=== PATIENT | female | born 2000 | race Caucasian/White ===

== ENCOUNTER 2022-03-29 22:11 | Emergency (ER) | payer MEDICAID ==
[~2022-03-29] VITALS: Ht 157.5 cm; Wt 72.6 kg
[2022-03-29 22:38] VITALS: BP 104/73
--- NOTE | 2022-03-29 22:38 | NUR ---
Dr. Carr examining patient.
[2022-03-29 23:02] LABS: APPEARANCE,URINE CLOUDY (CLEAR); BILIRUBIN,URINE NEGATIVE (NEGATIVE); BLOOD, URINE 2+ (NEGATIVE); COLOR,URINE YELLOW (YELLOW); LEUKOCYTE ESTERASE ,URINE 1+ (NEGATIVE); NITRITE, URINE POSITIVE (NEGATIVE); UGLUCOSE NEGATIVE (NEGATIVE)
[2022-03-29 23:07] LABS: RBC,URINE 0-5 /HPF (0-5); WBC,URINE 20-60 /HPF (0-5)
[2022-03-29] MEDS ORDERED: NITR100C7 PO (23:14)
[2022-03-29 23:18] VITALS: BP 104/73
--- NOTE | 2022-03-29 23:18 | NUR ---
Patient discharged with v/s stable. Written and verbal after care instructions given and explained for UIT by Dr. Carr. Patient alert, oriented and verbalized understanding of instructions. Ambulatory with steady gait. All questions addressed prior to discharge. ID band removed. Patient advised to follow up with PMD. Rx of Macrobid given. Patient educated on indication of medication including possible reaction and side effects. Opportunity to ask questions provided and answered.
--- NOTE | 2022-04-03 11:38 | NUR ---
LATE ENTRY. RECEIVED POSITIVE URINE CULTURE. DISCREPANCY LOG SIGNED BY DR OROSCO, TREATMENT APPROPRIATE. FORM PLACED IN BINDER.
== END 2022-03-29 23:18 | disposition home or self-care (01) ==
LOC: MED 22:11
DX: N39.0 Urinary tract infection, site not specified (principal); Z90.49 Acquired absence of other specified parts of digestive tract; Z79.899 Other long term (current) drug therapy
CPT/HCPCS: 81001; 81025; 87086; 99283

== ENCOUNTER 2022-04-16 02:43 | Emergency (ER) | payer MEDICAID ==
[~2022-04-16] VITALS: Ht 157.5 cm; Wt 68.0 kg
[~2022-04-16 02:43] MED LIST: NITR100C7 PO
[2022-04-16 02:45] VITALS: BP 125/77
--- NOTE | 2022-04-16 02:45 | NUR ---
TO BED AMBULATORY
--- NOTE | 2022-04-16 03:45 | NUR ---
21 YO F BIB [facility] FOR CHEST PAIN X30 MIN. PT WAS LAYING DOWN. PT STATES PAIN 8/10 IN UPPER MID CHEST AREA. CONSTANT TIGHT PAIN. PT STARTS SHE STARTED A NEW WORKOUT PROGRAM. PT DENIES SMOKING, DRINKING, OR DRUG USE. PT STATES SHE WAS SHAKING BUT DENIES N/F/V/D/SOB PT SUFFERS FROM AXIETY NO MEDS CURRENTLY. GALLBLADDER REMOVED. LMP: March
[2022-04-16] MEDS ORDERED: diazePAM 5 MG TAB PO ONE (03:50)
[2022-04-16] MEDS ORDERED: KETOROLAC 30 MG/ML VIAL IM ONE (03:50)
--- NOTE | 2022-04-16 04:15 | NUR ---
Patient appears to be resting comfortably in bed. Vital Signs within normal limits. Respirations even and unlabored.
[2022-04-16] MEDS ORDERED: NAPR-54 PO (04:53)
[2022-04-16 05:08] VITALS: BP 111/78
--- NOTE | 2022-04-16 05:08 | NUR ---
Patient discharged with v/s stable. Written and verbal after care instructions given and explained. Patient alert, oriented and verbalized understanding of instructions. Ambulatory with steady gait. All questions addressed prior to discharge. ID band removed. Patient advised to follow up with PMD. Rx of NAPROSYN given. Opportunity to ask questions provided and answered.
--- NOTE | 2022-04-16 05:47 | NUR ---
The patient's care was reviewed and supervised by Jazmyne Cruz RN.
== END 2022-04-16 05:08 | disposition home or self-care (01) ==
LOC: MED 02:43
DX: R07.89 Other chest pain (principal); F41.9 Anxiety disorder, unspecified; Z90.49 Acquired absence of other specified parts of digestive tract; Z79.1 Long term (current) use of non-steroidal anti-inflammatories (NSAID); Z79.2 Long term (current) use of antibiotics
CPT/HCPCS: 71045; 93005; 96372; 99285; J1885; Q0092

== ENCOUNTER 2022-05-11 21:23 | Emergency (ER) | payer MEDICAID ==
[~2022-05-11] VITALS: Ht 157.5 cm; Wt 65.8 kg
[~2022-05-11 21:23] MED LIST changes: +NAPR-54 PO
[2022-05-11 21:46] VITALS: BP 117/65
--- NOTE | 2022-05-11 21:51 | NUR ---
TO LOBBY FOLLOWING TRIAGE
--- NOTE | 2022-05-12 01:32 | NUR ---
PT WAS CALLED AGAIN AND LWBS
--- NOTE | 2022-05-12 01:32 | NUR ---
ERMD CALLING PATIENT WITH NO ANSWER
[2022-05-12] MEDS ORDERED: NAPR-54 PO (14:29)
[2022-05-12] MEDS ORDERED: LID5T TP (14:29)
[2022-05-12] MEDS ORDERED: CYCL-711 PO (14:29)
== END 2022-05-12 01:32 | disposition left against medical advice (07) ==
LOC: MED 21:23
DX: M54.50 Low back pain, unspecified (principal); Z53.21 Procedure and treatment not carried out due to patient leaving prior to being seen by health care provider

== ENCOUNTER 2022-05-12 11:43 | Emergency (ER) | payer MEDICAID ==
[~2022-05-12] VITALS: Ht 157.5 cm; Wt 67.1 kg
[2022-05-12 12:03] VITALS: BP 149/73
--- NOTE | 2022-05-12 12:06 | NUR ---
PT TO WAIT IN LOBBY.
--- NOTE | 2022-05-12 12:13 | NUR ---
21 Y/O FEMALE C/O BACK PAIN 07/09 X3DAYS. DENIES TRAUMA/INJURY. DENIES FEVER/CHILLS. DENIES N/V/D. DENIES PMH ALLERGIES: REGLAN
--- NOTE | 2022-05-12 12:42 | NUR ---
MARILIA SHERIFF WITH PT FOR FURTHER EVALUATION IN A.
--- NOTE | 2022-05-12 12:50 | NUR ---
PT TO WAIT IN LOBBY.
[2022-05-12] MEDS: KETOROLAC 30 MG/ML VIAL IM ONE (13:43)
[2022-05-12 13:46] VITALS: BP 106/59
--- NOTE | 2022-05-12 13:48 | NUR ---
PT MEDICATED, REEVALUATED IN TRIAGE ROOM, SENT TO LOBBY.
[2022-05-12] MEDS ORDERED: LID5T TP (14:29)
[2022-05-12] MEDS ORDERED: CYCL-711 PO (14:29)
[2022-05-12] MEDS ORDERED: NAPR-54 PO (14:29)
--- NOTE | 2022-05-12 15:35 | NUR ---
PT LEFT WITHOUT D/C PAPERWORK. PA NOTIFIED.
== END 2022-05-12 15:35 | disposition home or self-care (01) ==
LOC: MED 11:43
DX: S39.012A Strain of muscle, fascia and tendon of lower back, initial encounter (principal); X58.XXXA Exposure to other specified factors, initial encounter; Y93.89 Activity, other specified; Y92.89 Other specified places as the place of occurrence of the external cause; Y99.8 Other external cause status
CPT/HCPCS: 81002; 81025; 96372; 99283; J1885

== ENCOUNTER 2022-08-02 17:40 | Emergency (ER) | payer MEDICAID ==
[~2022-08-02] VITALS: Ht 157.5 cm; Wt 64.4 kg
[~2022-08-02 17:40] MED LIST changes: +CYCL-711 PO; +LID5T TP
[2022-08-02 17:59] VITALS: BP 117/74
--- NOTE | 2022-08-02 20:58 | NUR ---
PATIENT LEFT WITHOUT BEING SEEN BY DR. Davis. NO FURTHER CARE PROVIDED FOR PATIENT.
== END 2022-08-02 20:58 | disposition left against medical advice (07) ==
LOC: MED 17:40
DX: M54.50 Low back pain, unspecified (principal); R10.9 Unspecified abdominal pain; Z53.21 Procedure and treatment not carried out due to patient leaving prior to being seen by health care provider

== ENCOUNTER 2022-08-29 00:56 | Emergency (ER) | payer MEDICAID ==
[~2022-08-29] VITALS: Ht 157.5 cm; Wt 65.8 kg
[2022-08-29 01:00] VITALS: BP 119/75
--- NOTE | 2022-08-29 01:03 | NUR ---
to lobby a/w bed ambulatory
[2022-08-29] MEDS ORDERED: ACETAMINOPHEN EXTRA STRENGTH 500 MG TAB PO ONE (01:35)
[2022-08-29] MEDS ORDERED: ACETAMINOPHEN EXTRA STRENGTH 500 MG TAB ONE (02:56)
[2022-08-29 02:58] VITALS: BP 121/72
--- NOTE | 2022-08-29 03:00 | NUR ---
Patient discharged with v/s stable by ermd. Written and verbal after care instructions given and explained. Patient verbalized understanding. Ambulatory with steady gait. All questions addressed prior to discharge. Advised to follow up with PMD.
== END 2022-08-29 03:00 | disposition home or self-care (01) ==
LOC: MED 00:56
DX: R07.89 Other chest pain (principal); Z79.899 Other long term (current) drug therapy
CPT/HCPCS: 71045; 93005; 99283

== ENCOUNTER 2022-09-28 10:23 | Emergency (ER) | payer MEDICAID ==
[~2022-09-28] VITALS: Ht 157.5 cm; Wt 64.4 kg
[2022-09-28 10:41] VITALS: BP 107/55
--- NOTE | 2022-09-28 12:07 | NUR ---
COVID, FLU SWABS DONE
[2022-09-28 12:48] LABS: BASOPHILS % (AUTO) 0.4 % (0.0-2.0); EOSINOPHILS # (AUTO) 0.1 K/uL (0-0.4); EOSINOPHILS % (AUTO) 1.9 % (0.0-4.0); HEMATOCRIT 41.7 % (36-48); LYMPHOCYTES # (AUTO) 0.9 K/uL (2.5-16.5); LYMPHOCYTES % (AUTO) 17.2 % (20.5-51.1); MEAN CORPUSCULAR HEMOGLOBIN 30 pg (27-31); MEAN CORPUSCULAR HGB CONC 34 g/dL (33-37); MEAN CORPUSCULAR VOLUME 88.5 fL (80-94); MONOCYTES # (AUTO) 0.6 K/uL (0.8-1.0); MONOCYTES % (AUTO) 11.6 % (1.7-9.3); NEUTROPHILS # (AUTO) 3.7 K/uL (1.8-7.7); NEUTROPHILS % (AUTO) 68.9 % (42.2-75.2); PLATELET COUNT (AUTO) 124 K/uL (140-450); RED BLOOD CELL COUNT(AUTO) 4.71 MIL/uL (4.20-5.40); RED CELL DISTRIBUTION WIDTH 13.9 % (11.6-13.7); WHITE BLOOD COUNT (AUTO) 5.3 K/uL (4.8-10.8)
[2022-09-28 12:58] LABS: ANION GAP 11.8 (8-16); CARBON DIOXIDE 29.4 mmol/L (21-32); CREATININE 0.8 mg/dL (0.6-1.3); POTASSIUM 4.2 mmol/L (3.5-5.1)
[2022-09-28] MEDS ORDERED: ONDA-188 PO (13:28)
== END 2022-09-28 13:49 | disposition home or self-care (01) ==
LOC: MED 10:23
DX: K52.9 Noninfective gastroenteritis and colitis, unspecified (principal); Z20.822 Contact with and (suspected) exposure to COVID-19; R11.10 Vomiting, unspecified; R51.9 Headache, unspecified
CPT/HCPCS: 36415; 80048; 81002; 81025; 83690; 85025; 99283

== ENCOUNTER 2022-10-26 12:20 | Emergency (ER) | payer MEDICAID ==
[~2022-10-26] VITALS: Ht 157.5 cm; Wt 65.0 kg
[~2022-10-26 12:20] MED LIST changes: +ONDA-188 PO
[2022-10-26 12:30] VITALS: BP 105/67
--- NOTE | 2022-10-26 12:55 | NUR ---
C/O RIGHT SHOULDER PAIN RADIATING TO RIGHT HAND X 2 WEEKS. PMHl: GALL BLADDER REMOVAL
[2022-10-26 14:00] VITALS: BP 105/67
--- NOTE | 2022-10-26 14:00 | NUR ---
Patient discharged with v/s stable. Written and verbal after care instructions given and explained. Patient verbalized understanding. Ambulatory with steady gait. All questions addressed prior to discharge. Advised to follow up with PMD.
== END 2022-10-26 14:00 | disposition home or self-care (01) ==
LOC: MED 12:20
DX: M79.604 Pain in right leg (principal); M25.511 Pain in right shoulder; Z79.899 Other long term (current) drug therapy
CPT/HCPCS: 99281

== ENCOUNTER 2022-11-05 16:03 | Emergency (ER) | payer MEDICAID ==
[~2022-11-05] VITALS: Ht 157.5 cm; Wt 64.4 kg
[2022-11-05 16:16] VITALS: BP 114/72
[2022-11-05] MEDS ORDERED: FLONAS NS (17:46)
[2022-11-05] MEDS ORDERED: PROM118S5 PO (17:46)
--- NOTE | 2022-11-05 18:12 | NUR ---
Patient discharged with v/s stable. Written and verbal after care instructions given and explained. Patient alert, oriented and verbalized understanding of instructions. Ambulatory with steady gait. All questions addressed prior to discharge. ID band removed. Patient advised to follow up with PMD. Rx of FLONASE AND PROMETHAZINE DM given. Patient educated on indication of medication including possible reaction and side effects. Opportunity to ask questions provided and answered.
== END 2022-11-05 18:12 | disposition home or self-care (01) ==
LOC: MED 16:03
DX: U07.1 COVID-19 (principal)
CPT/HCPCS: 99283

== ENCOUNTER 2023-01-27 16:08 | Emergency (ER) | payer MEDICAID ==
[~2023-01-27] VITALS: Ht 157.5 cm; Wt 66.2 kg
[~2023-01-27 16:08] MED LIST changes: +FLONAS NS; +PROM118S5 PO
[2023-01-27 16:18] VITALS: BP 132/70
[2023-01-27] MEDS ORDERED: KETOROLAC 60 MG/2 ML VIAL IM ONE (17:05)
[2023-01-27 17:50] LABS: BILIRUBIN,URINE NEGATIVE (NEGATIVE); BLOOD, URINE 3+ (NEGATIVE); COLOR,URINE YELLOW (YELLOW); LEUKOCYTE ESTERASE ,URINE 3+ (NEGATIVE); NITRITE, URINE POSITIVE (NEGATIVE); UGLUCOSE NEGATIVE (NEGATIVE)
[2023-01-27 17:54] LABS: APPEARANCE,URINE HAZY (CLEAR)
[2023-01-27 17:59] LABS: RBC,URINE 11-20 (MOD) /HPF (0-5); WBC,URINE TOO MANY TO COUNT /HPF (0-5)
[2023-01-27] MEDS ORDERED: cefTRIAXone 1,000 MG in LIDOCAINE MPF 1% 2.1 ML IM ONE (18:30)
[2023-01-27] MEDS ORDERED: LIDOCAINE MPF 1% 5 ML ONE (18:48)
[2023-01-27] MEDS ORDERED: cefTRIAXone 1,000 MG VIAL ONE (18:48)
[2023-01-27] MEDS ORDERED: NITR100C7 PO (19:34)
[2023-01-27] MEDS ORDERED: NAPR-54 PO (19:34)
[2023-01-27 19:40] VITALS: BP 132/70
--- NOTE | 2023-01-27 19:40 | NUR ---
Patient discharged with v/s stable. Written and verbal after care instructions given and explained. Patient alert, oriented and verbalized understanding of instructions. Ambulatory with steady gait. All questions addressed prior to discharge. ID band removed. Patient advised to follow up with PMD. Rx of NAPROSYN, MACROBID given. Patient educated on indication of medication including possible reaction and side effects. Opportunity to ask questions provided and answered.
== END 2023-01-27 19:40 | disposition home or self-care (01) ==
LOC: MED 16:08
DX: N39.0 Urinary tract infection, site not specified (principal); N12 Tubulo-interstitial nephritis, not specified as acute or chronic; Z79.899 Other long term (current) drug therapy; Z90.49 Acquired absence of other specified parts of digestive tract
CPT/HCPCS: 81001; 81025; 87086; 96372; 99284; J0696; J1885; J2001

== ENCOUNTER 2023-04-25 13:21 | Emergency (ER) | payer MEDICAID ==
[~2023-04-25] VITALS: Ht 157.5 cm; Wt 69.4 kg
[2023-04-25 13:25] VITALS: BP 132/77; PULSE 77; RESP 18; TEMP 98; O2SAT 99
[2023-04-25] MEDS ORDERED: OFLO5SOL27 OT (14:57)
[2023-04-25] MEDS ORDERED: NAPR-54 PO (14:57)
[2023-04-25] MEDS ORDERED: AMOX500C25 PO (14:57)
[2023-04-25] MEDS ORDERED: LID5T TP (14:57)
[2023-04-25 15:27] LABS: APPEARANCE,URINE CLEAR (CLEAR); BILIRUBIN,URINE NEGATIVE (NEGATIVE); BLOOD, URINE 2+ (NEGATIVE); COLOR,URINE YELLOW (YELLOW); LEUKOCYTE ESTERASE ,URINE 1+ (NEGATIVE); NITRITE, URINE POSITIVE (NEGATIVE); UGLUCOSE NEGATIVE (NEGATIVE)
[2023-04-25 15:40] LABS: RBC,URINE 11-20 (MOD) /HPF (0-5)
[2023-04-25] MEDS ORDERED: NITR100C7 PO (16:47)
[2023-04-25 17:03] VITALS: BP 112/70; PULSE 74; RESP 17; O2SAT 99
--- NOTE | 2023-04-25 17:04 | NUR ---
Patient discharged with v/s stable. Written and verbal after care instructions given and explained. Patient alert, oriented and verbalized understanding of instructions. Ambulatory with steady gait. All questions addressed prior to discharge. ID band removed. Patient advised to follow up with PMD. Rx of lidoderm patch given. Patient educated on indication of medication including possible reaction and side effects. Opportunity to ask questions provided and answered.
[2023-04-27] MEDS ORDERED: AMOX-999 PO (15:28)
== END 2023-04-25 17:09 | disposition home or self-care (01) ==
LOC: MED 13:21
DX: S30.0XXA Contusion of lower back and pelvis, initial encounter (principal); H66.91 Otitis media, unspecified, right ear; H60.91 Unspecified otitis externa, right ear; Z79.899 Other long term (current) drug therapy; X58.XXXA Exposure to other specified factors, initial encounter; Y93.89 Activity, other specified; Y92.89 Other specified places as the place of occurrence of the external cause; Y99.8 Other external cause status
CPT/HCPCS: 72110; 81001; 81025; 87086; 99284

== ENCOUNTER 2023-06-25 14:10 | Emergency (ER) | payer MEDICAID ==
[~2023-06-25] VITALS: Ht 160 cm; Wt 72.1 kg
[~2023-06-25 14:10] MED LIST changes: +AMOX-999 PO; +AMOX500C25 PO; +OFLO5SOL27 OT
[2023-06-25] MEDS ORDERED: KETOROLAC 30 MG/ML VIAL IM ONE (14:55)
[2023-06-25 14:59] VITALS: BP 101/69; PULSE 76; RESP 18; TEMP 97.8
[2023-06-25] MEDS ORDERED: CYCL-711 PO (15:08)
[2023-06-25] MEDS ORDERED: NITR100C7 PO (15:08)
[2023-06-25] MEDS ORDERED: IBUP-1842 PO (15:08)
[2023-06-25 15:45] VITALS: BP 101/69; PULSE 76; RESP 18; TEMP 97.8; O2SAT 98
== END 2023-06-25 16:04 | disposition home or self-care (01) ==
LOC: MED 14:10
DX: M54.6 Pain in thoracic spine (principal); M54.50 Low back pain, unspecified; Z79.899 Other long term (current) drug therapy; Z79.1 Long term (current) use of non-steroidal anti-inflammatories (NSAID); Z79.2 Long term (current) use of antibiotics; Z88.8 Allergy status to other drugs, medicaments and biological substances
CPT/HCPCS: 81002; 81025; 96372; 99283; J1885

== ENCOUNTER 2023-10-26 16:40 | Emergency (ER) | payer MEDICAID ==
[~2023-10-26] VITALS: Ht 157.5 cm; Wt 70.8 kg
[~2023-10-26 16:40] MED LIST changes: +IBUP-1842 PO
[2023-10-26 16:58] VITALS: BP 107/64; PULSE 114; RESP 20; TEMP 101.3; O2SAT 98
[2023-10-26 17:19] VITALS: O2SAT 98
[2023-10-26 17:30] VITALS: BP 105/64; PULSE 109; RESP 18; TEMP 101.4; O2SAT 98
[2023-10-26] MEDS ORDERED: AMOX-1230 PO (17:45)
== END 2023-10-26 17:47 | disposition home or self-care (01) ==
LOC: MED 16:40
DX: J18.9 Pneumonia, unspecified organism (principal); Z79.899 Other long term (current) drug therapy
CPT/HCPCS: 71046; 99283

== ENCOUNTER 2023-12-21 16:54 | Emergency (ER) | payer MEDICAID ==
[~2023-12-21] VITALS: Ht 157.5 cm; Wt 69.9 kg
[~2023-12-21 16:54] MED LIST changes: +AMOX-1230 PO
[2023-12-21 17:07] VITALS: BP 103/67; PULSE 121; RESP 19; TEMP 99.7; O2SAT 97
[2023-12-21 17:42] VITALS: TEMP 99.7
[2023-12-21 17:43] LABS: BASOPHILS % (AUTO) 0.2 % (0.0-2.0); EOSINOPHILS % (AUTO) 0.1 % (0.0-4.0); LYMPHOCYTES # (AUTO) 0.3 K/uL (2.5-16.5); MONOCYTES # (AUTO) 0.4 K/uL (0.8-1.0)
[2023-12-21 17:48] LABS: ANION GAP 15.9 (8-16); CALCIUM 9.1 mg/dL (8.5-10.1); CREATININE 0.8 mg/dL (0.6-1.3); HEMATOCRIT 43.8 % (36-48); HEMOGLOBIN 14.6 g/dL (12.0-16.0); LYMPHOCYTES % (AUTO) 1.8 % (20.5-51.1); MEAN CORPUSCULAR HEMOGLOBIN 30 pg (27-31); MEAN CORPUSCULAR HGB CONC 33 g/dL (33-37); MEAN CORPUSCULAR VOLUME 89.3 fL (80-94); MONOCYTES % (AUTO) 2.5 % (1.7-9.3); NEUTROPHILS # (AUTO) 13.9 K/uL (1.8-7.7); NEUTROPHILS % (AUTO) 95.4 % (42.2-75.2); PLATELET COUNT (AUTO) 171 K/uL (140-450); POTASSIUM 3.9 mmol/L (3.5-5.1); RED BLOOD CELL COUNT(AUTO) 4.91 MIL/uL (4.20-5.40); WHITE BLOOD COUNT (AUTO) 14.5 K/uL (4.8-10.8)
[2023-12-21 18:03] LABS: BILIRUBIN,DIRECT 0.1 mg/dL (0.0-0.3); TOTAL BILIRUBIN 0.8 mg/dL (0.0-1.0); TOTAL PROTEIN, SERUM 9.6 g/dL (6.4-8.2)
[2023-12-21] MEDS: MORPHINE SULFATE 4 MG/ML SYR IVP ONE (18:09)
[2023-12-21] MEDS: ONDANSETRON 4 MG/2 ML VIAL IVP ONE (18:11)
[2023-12-21] MEDS: NACL 0.9% 1,000 ML IV ONE ×2 (18:12→19:11)
[2023-12-21] MEDS: KETOROLAC 30 MG/ML VIAL IVP ONE (19:10)
[2023-12-21 20:30] VITALS: BP 97/46; PULSE 126; RESP 15; O2SAT 99
[2023-12-21 20:33] LABS: APPEARANCE,URINE CLEAR (CLEAR); BILIRUBIN,URINE NEGATIVE (NEGATIVE); BLOOD, URINE 3+ (NEGATIVE); COLOR,URINE YELLOW (YELLOW); LEUKOCYTE ESTERASE ,URINE NEGATIVE (NEGATIVE); NITRITE, URINE NEGATIVE (NEGATIVE); PROTEIN,URINE NEGATIVE (NEGATIVE); UGLUCOSE NEGATIVE (NEGATIVE); UROBILINOGEN,URINE 0.2 EU/dL (0.2 - 1)
[2023-12-21] MEDS ORDERED: CEPH-588 PO (20:53)
[2023-12-21] MEDS ORDERED: ONDA-188 SL (20:53)
== END 2023-12-21 21:05 | disposition home or self-care (01) ==
LOC: MED 16:54
DX: N30.81 Other cystitis with hematuria (principal); Z79.899 Other long term (current) drug therapy
CPT/HCPCS: 36415; 74176; 80048; 80076; 81003; 81025; 83690; 84703; 85025; 96361; 96374; 96375; 99285; J2270; J2405; J7030; J1885

== ENCOUNTER 2024-03-07 17:02 | Emergency (ER) | payer MEDICAID ==
[~2024-03-07] VITALS: Ht 157.5 cm; Wt 73.9 kg
[~2024-03-07 17:02] MED LIST changes: +CEPH-588 PO; +NAPR-337 PO; -NAPR-54 PO; +ONDA-188 SL
[2024-03-07 17:14] VITALS: BP 120/79; PULSE 92; RESP 18; TEMP 98.7; O2SAT 99
[2024-03-07 18:35] LABS: BASOPHILS # (AUTO) 0.1 K/uL (0.00-0.22); BASOPHILS % (AUTO) 0.5 % (0.0-2.0); EOSINOPHILS # (AUTO) 0.3 K/uL (0-0.4); EOSINOPHILS % (AUTO) 2.5 % (0.0-4.0); HEMATOCRIT 41.1 % (36-48); HEMOGLOBIN 13.7 g/dL (12.0-16.0); LYMPHOCYTES % (AUTO) 19.7 % (20.5-51.1); MEAN CORPUSCULAR HEMOGLOBIN 30 pg (27-31); MEAN CORPUSCULAR HGB CONC 34 g/dL (33-37); MONOCYTES # (AUTO) 0.7 K/uL (0.8-1.0); NEUTROPHILS # (AUTO) 7.2 K/uL (1.8-7.7); NEUTROPHILS % (AUTO) 70.3 % (42.2-75.2); PLATELET COUNT (AUTO) 143 K/uL (140-450); RED BLOOD CELL COUNT(AUTO) 4.61 MIL/uL (4.20-5.40); RED CELL DISTRIBUTION WIDTH 13.5 % (11.6-13.7); WHITE BLOOD COUNT (AUTO) 10.2 K/uL (4.8-10.8)
[2024-03-07 18:43] LABS: ANION GAP 10.4 (8-16); CALCIUM 9.1 mg/dL (8.5-10.1); CARBON DIOXIDE 29.4 mmol/L (21-32); CREATININE 0.7 mg/dL (0.6-1.3); POTASSIUM 3.8 mmol/L (3.5-5.1)
[2024-03-07 19:41] LABS: BILIRUBIN,URINE NEGATIVE (NEGATIVE); BLOOD, URINE 1+ (NEGATIVE); COLOR,URINE YELLOW (YELLOW); LEUKOCYTE ESTERASE ,URINE TRACE (NEGATIVE); NITRITE, URINE NEGATIVE (NEGATIVE); PROTEIN,URINE NEGATIVE (NEGATIVE); UGLUCOSE NEGATIVE (NEGATIVE)
[2024-03-07 19:42] LABS: APPEARANCE,URINE SLIGHTLY HAZY (CLEAR)
[2024-03-07 19:44] LABS: BACTERIA,URINE 2+ /HPF (None Seen); MUCUS,URINE None Seen /LPF (None Seen); RBC,URINE 0-5 /HPF (0-5); SQUAMOUS EPITHELIAL CELL,UR 0-3 (FEW) /LPF (0-3 (FEW)); WBC,URINE 0-5 /HPF (0-5)
[2024-03-07] MEDS ORDERED: ACET-8905 PO (20:50)
== END 2024-03-07 20:59 | disposition home or self-care (01) ==
LOC: MED 17:02
DX: M54.50 Low back pain, unspecified (principal); Z79.899 Other long term (current) drug therapy
CPT/HCPCS: 36415; 71045; 80048; 81001; 81025; 85025; 87086; 99284